=== PATIENT | male | born 1975 | race Caucasian/White ===

== ENCOUNTER 2022-10-14 20:57 | Emergency (ER) | payer BC ==
[2022-10-14] MEDS ORDERED: HYDROmorphone 1 MG/ML 1 ML SYRINGE IVP STA (21:32)
[2022-10-14] MEDS ORDERED: ONDANSETRON 4 MG/2 ML VIAL IVP STA (21:32)
[2022-10-14] MEDS ORDERED: ESMOLOL DRIP BOLUS FROM BAG 1 MCG SOLN IV PRN (21:56)
[2022-10-14] MEDS ORDERED: niCARdipine 20 MG in SODIUM CHLORIDE 0.9% 192 ML IV SCH (22:00)
[2022-10-14] MEDS ORDERED: HYDROmorphone 0.5 MG/0.5 ML SYRINGE IVP STA (22:07)
--- NOTE | 2022-10-14 22:10 | XR ---
EXAMINATION TYPE: XR chest 1V portable DATE OF EXAM: 10/14/2022 COMPARISON: None INDICATION: Chest pain, short of breath TECHNIQUE: Single frontal view of the chest is obtained. FINDINGS: Heart and mediastinum appear prominent. Pulmonary vasculature is normal. No suspicious infiltrate pre sent. IMPRESSION: 1. No acute pulmonary process. 2. Heart and mediastinum are prominent. See subsequent CT.
[2022-10-14] MEDS ORDERED: ESMOLOL IN SODIUM CHLORIDE PMX 2.5 GM in SALINE 1 250ML.BAG IV SCH (22:15)
[2022-10-14 22:19] LABS: Prothrombin Time 10.5 sec (9.0-12.0)
--- NOTE | 2022-10-14 22:28 | ED ---
General Adult HPI - General Chief complaint: Chest Pain Stated complaint: SOB, Back Pain Time Seen by Provider: 10/14/22 21:27 Source: patient, RN notes reviewed, old records reviewed Mode of arrival: ambulatory Limitations: no limitations - History of Present Illness Initial comments: 46-year-old male presenting with sudden onset back pain and chest pain while using the restroom. Patient presents just after the onset of symptoms. He has nausea. He is diaphoretic. Patient has not seen a physician in 20 years and he is a current smoker. - Related Data Allergies Allergy/AdvReac Type Severity Reaction Status Date / Time Penicillins Allergy Nausea & Verified 10/14/22 21:17 Vomiting Review of Systems ROS Statement: Those systems with pertinent positive or pertinent negative responses have been documented in the HPI. ROS Other: All systems not noted in ROS Statement are negative. Past Medical History Past Medical History: No Reported History History of Any Multi-Drug Resistant Organisms: None Reported Past Surgical History: No Surgical Hx Reported Past Psychological History: No Psychological Hx Reported Smoking Status: Current every day smoker Past Alcohol Use History: None Reported Past Drug Use History: None Reported General Exam Limitations: no limitations General appearance: alert, in distress Head exam: Present: atraumatic, normocephalic Eye exam: Present: normal appearance, PERRL ENT exam: Present: normal exam Neck exam: Present: normal inspection. Absent: tenderness, meningismus Respiratory exam: Present: normal lung sounds bilaterally. Absent: respiratory distress, wheezes Cardiovascular Exam: Present: regular rate, normal rhythm GI/Abdominal exam: Present: soft. Absent: distended, tenderness, guarding Extremities exam: Present: other (Bilateral radial pulses, bilateral DP and PT) Neurological exam: Present: alert, oriented X3 Psychiatric exam: Present: anxious Skin exam: Present: diaphoretic Course Vital Signs 10/14/22 10/14/22 10/14/22 21:15 21:32 21:34 Temperature 97.8 F Pulse Rate 83 87 Respiratory 20 28 H Rate Blood Pressure 241/115 205/123 O2 Sat by Pulse 97 94 L Oximetry 10/14/22 10/14/22 10/14/22 21:36 21:45 22:00 Temperature Pulse Rate 83 83 Respiratory 17 13 Rate Blood Pressure 205/123 205/123 O2 Sat by Pulse 98 91 L Oximetry 10/14/22 10/14/22 10/14/22 22:15 22:17 22:30 Temperature Pulse Rate 82 82 Respiratory 18 16 11 L Rate Blood Pressure 191/111 173/105 154/106 O2 Sat by Pulse 85 L Oximetry 10/14/22 10/14/22 10/14/22 22:45 22:50 23:00 Temperature Pulse Rate 79 79 74 Respiratory 16 16 11 L Rate Blood Pressure 133/70 146/90 O2 Sat by Pulse 84 L 90 L 95 Oximetry 10/14/22 10/14/22 10/15/22 23:15 23:30 00:15 Temperature 98.0 F Pulse Rate 69 70 67 Respiratory 11 L 12 16 Rate Blood Pressure 112/72 111/87 O2 Sat by Pulse 94 L 96 95 Oximetry ABP, PAP, CO, CI - Last 8 Hours Arterial Blood Pressure 111/68 Arterial Blood Pressure 107/64 Arterial Blood Pressure 124/72 Arterial Blood Pressure 158/88 EKG Findings - EKG Comments: EKG Findings:: EKG: Sinus rhythm, rate 79, ME interval 145, QRS duration 120, QTC 457. Repeat EKG at 2134, sinus rhythm, rate of 84, ME interval 156, QRS duration 112, QTC 428, no ST segment elevation. Procedures - Arterial Line No standard instances Consent Obtained: verbal consent Size (Gauge): 20 Technique Used: guide wire technique Post-Procedure: line sutured into place, dry sterile dressing placed Patient Tolerated Procedure: well Complications: none Medical Decision Making - Medical Decision Making Was pt. sent in by a medical professional or institution (ARIC Wesley, ABORIGINAL EDUCATION TEACHER, urgent care, hospital, or [place] health care facility...) When possible be specific @ -[No] Did you speak to anyone other than the patient for history (EMS, parent, family, police, friend...)? What history was obtained from this source @ - Did you review nursing and triage notes (agree or disagree)? Why? @ -[I reviewed and agree with nursing and triage notes] Were old charts reviewed (outside hosp., previous admission, EMS record, old EKG, old radiological studies, urgent care reports/EKG's, [place] health care facility records)? Report findings @ -[No old charts were reviewed] Differential Diagnosis (chest pain, altered mental status, abdominal pain women, abdominal pain men, vaginal bleeding, weakness, fever, dyspnea, syncope, headache, dizziness, GI bleed, back pain, seizure, CVA, palpatations, mental health, musculoskeletal)? @ Differential Chest Pain: Stable Angina, Unstable Angina, STEMI, NSTEMI Aortic Dissection, Pneumothorax, Musculoskeletal, Esophageal Spasm GERD, Cholecystitis, Pancreatitis, Zoster, this is not meant to be an all-inclusive list. EKG interpreted by me (3pts min.). @ EKG: Sinus rhythm, rate 79, ME interval 145, QRS duration 120, QTC 457 Repeat EKG at 2134, sinus rhythm, rate of 84, ME interval 156, QRS duration 112, QTC 428, no ST segment elevation. X-rays interpreted by me (1pt min.). @ -Widened mediastinum CT interpreted by me (1pt min.). @ Aortic dissection extending from the aortic arch to the left iliac artery reviewed by myself at the time the exam was performed U/S interpreted by me (1pt. min.). @ -[None done] What testing was considered but not performed or refused? (CT, X-rays, U/S, labs)? Why? @ -[None] What meds were considered but not given or refused? Why? @ -[None] Did you discuss the management of the patient with other professionals (professionals i.e. , PA, ABORIGINAL EDUCATION TEACHER, lab, RT, psych nurse, adoption social worker, long chain beamer, teacher, flight communications officer, manager case)? Give summary @ -The cardiac thoracic surgeon at [facility] Dr. Sandoval Was smoking cessation discussed for >3mins.? @ -[No] Was critical care preformed (if so, how long)? @ -yes Were there social determinants of health that impacted care today? How? (Homelessness, low income, unemployed, alcoholism, drug addiction, transportation, low edu. Level, literacy, decrease access to med. care, fci, rehab)? @ -[No] Was there de-escalation of care discussed even if they declined (Discuss DNR or withdrawal of care, Hospice)? DNR status @ -[No] What co-morbidities impacted this encounter? (DM, HTN, Smoking, COPD, CAD, Cancer, CVA, ARF, Chemo, Hep., AIDS, mental health diagnosis, sleep apnea, morbid obesity)? @ HTN, Smoker Was patient admitted / discharged? Hospital course, mention meds given and route, prescriptions, significant lab abnormalities, going to OR and other pertinent info. @ 46-year-old male presenting with chest pain back pain, patient is hyperte nsive at 240 systolic. There is high suspicion for aortic dissection, IV is established, EKG obtained which is sinus rhythm without ST segment elevation. His CT shows dissection which begins at the aortic arch and continues into the left iliac. The patient does have symmetric distal pulses. He is immediately given pain management, started on esmolol and Cardene for heart rate and blood pressure control. I initially attempted to contact [place] followed by [facility] but was unsuccessful in transferring patient to these locations and was able to receive an accepting physician at [facility], Dr. Sandoval. Patient will be transferred to [facility] for surgical ICU Repeat EKG remains nonischemic. The patient blood pressure significantly improved on esmolol and Cardene. He has a right radial A-line. Undiagnosed new problem with uncertain prognosis? @ -[No] Drug Therapy requiring intensive monitoring for toxicity (Heparin, Nitro, Insulin, Cardizem)? @ -[No] Were any procedures done? @ -Yes, arterial line Diagnosis/symptom? @ Aortic dissection Acute, or Chronic, or Acute on Chronic? @ Acute Uncomplicated (without systemic symptoms) or Complicated (systemic symptoms)? @ Complicated Side effects of treatment? @ -[No] Exacerbation, Progression, or Severe Exacerbation? @ -[No] Poses a threat to life or bodily function? How? (Chest pain, [place], [place], pneumonia, PE, COPD, DKA, ARF, appy, cholecystitis, CVA, Diverticulitis, Homicidal, Suicidal, threat to staff... and all critical care pts) @ -Yes, aortic dissection, aortic valve insufficiency, pericardial effusion, tamponade shock and - Lab Data Result diagrams: 10/14/22 21:44 10/14/22 21:44 Lab Results 10/14/22 10/14/22 10/14/22 Range/Units 21:44 21:44 21:44 WBC 10.7 H (3.8-10.6) k/uL RBC 5.72 (4.30-5.90) m/uL Hgb 16.9 (13.0-17.5) gm/dL Hct 49.7 (39.0-53.0) % MCV 86.9 (80.0-100.0) fL MCH 29.6 (25.0-35.0) pg MCHC 34.1 (31.0-37.0) g/dL RDW 13.1 (11.5-15.5) % Plt Count 195 (150-450) k/uL MPV 7.6 Neutrophils % 65 % Lymphocytes % 22 % Monocytes % 7 % Eosinophils % 3 % Basophils % 1 % Neutrophils # 6.9 (1.3-7.7) k/uL Lymphocytes # 2.3 (1.0-4.8) k/uL Monocytes # 0.8 (0-1.0) k/uL Eosinophils # 0.3 (0-0.7) k/uL Basophils # 0.1 (0-0.2) k/uL PT 10.5 (9.0-12.0) sec INR 1.0 (<1.2) APTT 26.0 (22.0-30.0) sec Sodium 141 (137-145) mmol/L Potassium 3.8 (3.5-5.1) mmol/L Chloride 99 (98-107) mmol/L Carbon Dioxide 31 H (22-30) mmol/L Anion Gap 11 mmol/L BUN 19 (9-20) mg/dL Creatinine 1.00 (0.66-1.25) mg/dL Est GFR (CKD-EPI)AfAm >90 (>60 ml/min/1.73 sqM) Est GFR (CKD-EPI)NonAf >90 (>60 ml/min/1.73 sqM) Glucose 124 H (74-99) mg/dL Calcium 9.1 (8.4-10.2) mg/dL Magnesium 1.9 (1.6-2.3) mg/dL Total Bilirubin 0.6 (0.2-1.3) mg/dL AST 26 (17-59) U/L ALT 25 (4-49) U/L Alkaline Phosphatase 67 (38-126) U/L Troponin I (0.000-0.034) ng/mL Total Protein 7.5 (6.3-8.2) g/dL Albumin 4.3 (3.5-5.0) g/dL 10/14/22 Range/Units 21:44 WBC (3.8-10.6) k/uL RBC (4.30-5.90) m/uL Hgb (13.0-17.5) gm/dL Hct (39.0-53.0) % MCV (80.0-100.0) fL MCH (25.0-35.0) pg MCHC (31.0-37.0) g/dL RDW (11.5-15.5) % Plt Count (150-450) k/uL MPV Neutrophils % % Lymphocytes % % Monocytes % % Eosinophils % % Basophils % % Neutrophils # (1.3-7.7) k/uL Lymphocytes # (1.0-4.8) k/uL Monocytes # (0-1.0) k/uL Eosinophils # (0-0.7) k/uL Basophils # (0-0.2) k/uL PT (9.0-12.0) sec INR (<1.2) APTT (22.0-30.0) sec Sodium (137-145) mmol/L Potassium (3.5-5.1) mmol/L Chloride (98-107) mmol/L Carbon Dioxide (22-30) mmol/L Anion Gap mmol/L BUN (9-20) mg/dL Creatinine (0.66-1.25) mg/dL Est GFR (CKD-EPI)AfAm (>60 ml/min/1.73 sqM) Est GFR (CKD-EPI)NonAf (>60 ml/min/1.73 sqM) Glucose (74-99) mg/dL Calcium (8.4-10.2) mg/dL Magnesium (1.6-2.3) mg/dL Total Bilirubin (0.2-1.3) mg/dL AST (17-59) U/L ALT (4-49) U/L Alkaline Phosphatase (38-126) U/L Troponin I <0.012 (0.000-0.034) ng/mL Total Protein (6.3-8.2) g/dL Albumin (3.5-5.0) g/dL Critical Care Time Critical Care Time: Yes Total Critical Care Time: 100 Disposition Clinical Impression: Aortic dissection Disposition: OTHER INSTITUTION NOT DEFINED Condition: Serious Is patient prescribed a controlled substance at d/c from ED?: No Referrals: None,Stated [Primary Care Provider] - 1-2 days Time of Disposition: 22:28 - Out of Hospital Transfer - Req. Specs Out of Hospital Transfer - Requested Specifics: Surgical ICU ([facility])
[2022-10-14 22:31] LABS: Basophils # (A) 0.1 k/uL (0-0.2); Basophils % (A) 1 %; Eosinophils # (A) 0.3 k/uL (0-0.7); Eosinophils % (A) 3 %; HCT 49.7 % (39.0-53.0); HGB 16.9 gm/dL (13.0-17.5); Lymphocytes # (A) 2.3 k/uL (1.0-4.8); Lymphocytes % (A) 22 %; MCH 29.6 pg (25.0-35.0); MCHC 34.1 g/dL (31.0-37.0); MCV 86.9 fL (80.0-100.0); Mean Platelet Volume 7.6; Monocytes # (A) 0.8 k/uL (0-1.0); Monocytes % (A) 7 %; Neutrophils # (A) 6.9 k/uL (1.3-7.7); Neutrophils % (A) 65 %; Platelet Count 195 k/uL (150-450); RBC 5.72 m/uL (4.30-5.90); RDW 13.1 % (11.5-15.5); WBC 10.7 k/uL (3.8-10.6)
--- NOTE | 2022-10-14 22:35 | CT ---
EXAMINATION TYPE: CT angio thor/abd pel aorta DATE OF EXAM: 10/14/2022 INDICATION: chest & back pain, HTN, r/o dissection COMPARISON: None CT DLP: 2344.1 mGycm CONTRAST: Performed without Oral Contrast and with IV Contrast, patient injected with 100 mL of Isovue 370. TECHNIQUE: Axial images at 5 mm thick sections. Reconstructed images in the coronal plane. Delayed images through the kidneys. 3-D reconstructed images performed through the aorta, separate computer by technologist. FINDINGS: There is an enteric dissection which begins at the level of the left common carotid artery at the aortic arch and extends through the descending colon with contrast within both false and true lumen. The celiac axis and superior mesenteric artery appear normal. Right renal artery appears remedios l. Left renal artery has diminished contrast although contrast does extend to the left kidney. There is asymmetry with the contrast density with diminished contrast within the left kidney compared to th e right. The inferior mesenteric artery appears normal. Dissection extends into the left common iliac artery and appears to terminate prior to the internal and external iliac artery bifurcation. Intralu angela external iliac vessels are patent bilaterally. Common femoral arteries are patent bilaterally. Three-D reconstructed images of the aorta are performed. Preliminary results were discussed with the time of pulmonary interpretation with the emergency room physician Dr. Cabrera by Dr. Luu by telephone at approximately 2225 hours 10/14/2022 CT CHEST: Portion of the thyroid visualized is normal. Atelectasis may be within the right middle lobe. Some compressive atelectasis is within the dependent lung bases. No enlarged mediastinal or hilar adenopathy is evident. The ascending aorta diameter at the level of the main pulmonary artery is 3.9 cm. The main pulmonary artery diameter at the bifurcation is 3.8 cm. No aortic aneurysm is evident. Some minimal coronary a rtery calcification is present. CT ABDOMEN: Liver: There may be some mild fatty infiltration of the liver. Spleen: Normal Pancreas: Normal Adrenal glands: The adrenal glands are normal. Gallbladder: Normal Kidneys: There is slightly diminished concentration of the contrast within the left kidney compared t o the right. No masses are evident within the kidneys. No hydronephrosis is present. No cysts are p resent. Aorta: Aortic dissection discussed above. Inferior vena cava: Normal. CT PELVIS: Loops of bowel within the abdomen and pelvis are normal. There are loops of bowel which are incom pletely distended or lack oral contrast limiting their evaluation. Appendix: Normal as visualized. Urinary bladder: Incompletely distended. There may be some mild diffuse thickening which could be rel ated to the incomplete distention. Consider cystitis. Genitourinary structures: Prostate appears normal Osseous structures: No suspicious lytic or sclerotic lesions. IMPRESSIONS: 1. Aortic dissection extending from the left common carotid. The aortic arch into the right common il iac artery and terminating before the common iliac artery bifurcation. 2. There is diminished contrast density within the left kidney compared to the right. Remaining vascu lar structures appear to have normal flow.
[2022-10-14 22:37] LABS: ALT 25 U/L (4-49); AST 26 U/L (17-59); African American GFR (CKD) >90 (>60 ml/min/1.73 sqM); Albumin 4.3 g/dL (3.5-5.0); Alkaline Phosphatase 67 U/L (38-126); Anion Gap 11 mmol/L; Blood Urea Nitrogen 19 mg/dL (9-20); Calcium 9.1 mg/dL (8.4-10.2); Carbon Dioxide 31 mmol/L (22-30); Chloride 99 mmol/L (98-107); Glucose 124 mg/dL (74-99); Magnesium 1.9 mg/dL (1.6-2.3); Non-African American GFR(CKD) >90 (>60 ml/min/1.73 sqM); Potassium 3.8 mmol/L (3.5-5.1); Sodium 141 mmol/L (137-145); Total Bilirubin 0.6 mg/dL (0.2-1.3); Total Protein 7.5 g/dL (6.3-8.2)
[2022-10-15 00:17] VITALS: BP 111/87; PULSE 67; RESP 16; TEMP 98
== END 2022-10-15 00:10 | disposition other institution (70) ==
LOC: EC 20:57
DX: I71.00 Dissection of unspecified site of aorta (principal); I10 Essential (primary) hypertension; F17.200 Nicotine dependence, unspecified, uncomplicated; Z88.0 Allergy status to penicillin
CPT/HCPCS: 36415; 93005; 80053; 83735; 84484; 85025; 85610; 85730; 71045; 71275; 74174; 99291; 99292; 36620; 96365; 96368; 96375 ×2; 96376; J2405; J1170 ×2; Q9967